=== PATIENT | female | born 1980 | race American Indian/Alaskan Native ===

== ENCOUNTER 2016-08-29 19:28 | Emergency (ER) | payer MEDICAID ==
[2016-08-29 21:49] VITALS: BP 149/91
== END 2016-08-30 | disposition left against medical advice (07) ==
LOC: ED 19:28
DX: R10.13 Epigastric pain (principal); R07.9 Chest pain, unspecified; R51 Headache; Z53.21 Procedure and treatment not carried out due to patient leaving prior to being seen by health care provider
CPT/HCPCS: 93005; 93010